=== PATIENT | female | born 1995 | race African-American/Black ===

== ENCOUNTER 2019-02-17 14:51 | Emergency (ER) | payer MEDICAID, OTHER ==
[~2019-02-17] VITALS: Ht 170.2 cm; Wt 68.0 kg
[~2019-02-17 14:51] MED LIST: NKM
--- NOTE | 2019-02-17 15:28 | Emergency Room Report ---
History of Present Illness General Chief Complaint: Wound Recheck/Suture Removal Source: Patient Present Illness HPI 23-year-old female with no significant past medical history here requesting I&D packing of left axilla. Patient went to an urgent care and had it drained 8 days ago. Never went back for wound check and change of the I&D packing. Has been taking Keflex and Bactrim. Still having pus coming out. Has not follow- up with primary care physician. Denies any fever and chills, shortness of breath, palpitation, no other associated symptoms. Up-to-date with immunization. Allergies: Coded Allergies: No Known Allergies (Unverified , 03/08/16) Patient History Past Medical History: see triage record Past Surgical History: unable to obtain Pertinent Family History: none Last Menstrual Period: 02/06/19 Now: No Immunizations: UTD Reviewed Nursing Documentation: PMH: Agreed; PSxH: Agreed Nursing Documentation-PMH Past Medical History: No Stated History Review of Systems All Other Systems: negative except mentioned in HPI Physical Exam Vital Signs Date Time Temp Pulse Resp B/P (MAP) Pulse Ox O2 Delivery O2 Flow Rate FiO2 02/17/19 14:56 98.1 79 18 115/60 (78) 98 Room Air Sp02 EP Interpretation: reviewed, normal General Appearance: no apparent distress, alert, GCS 15, non-toxic Head: normocephalic, atraumatic Eyes: bilateral eye normal inspection, bilateral eye PERRL ENT: hearing grossly normal, normal pharynx, no angioedema, normal voice Neck: full range of motion, supple/symm/no masses Respiratory: chest non-tender, lungs clear, normal breath sounds, no wheezing, speaking full sentences Cardiovascular #1: regular rate, rhythm, no edema, no murmur, normal capillary refill Gastrointestinal: normal bowel sounds, non tender, soft, non-distended, no guarding, no rebound Rectal: deferred Genitourinary: no CVA tenderness Musculoskeletal: back normal, gait/station normal, normal range of motion, non- tender, no calf tenderness Neurologic: alert, oriented x3, responsive, motor strength/tone normal, sensory intact, speech normal Psychiatric: judgement/insight normal, memory normal, mood/affect normal, no suicidal/homicidal ideation Skin: other - Draining abscess left axilla possible hidradenitis suppurativa Lymphatic: no adenopathy Procedures Incision and Drainage Incision and Drainage : Consent: Verbal Site: Left axilla I & D Procedure: betadine prep Wound Location: upper extremity Wound's Depth, Shape: superficial Wound Length (cm): 2 Wound Explored: contaminated Splint Applied?: No Patient Tolerated: Well Complications: None Progress Packing strip was applied proper bandage was applied Medical Decision Making PA Attestation Diagnosis and treatment plans were reviewed and discussed with my supervising physician Dr. Samayoa Diagnostic Impression: Primary Impression: Change or removal of wound dressing Additional Impression: Abscess of axilla, left ER Course 23-year-old female with no significant past medical history here requesting I&D packing of left axilla. Patient went to an urgent care and had it drained 8 days ago. Never went back for wound check and change of the I&D packing. Has been taking Keflex and Bactrim. Still having pus coming out. Has not follow- up with primary care physician. Denies any fever and chills, shortness of breath, palpitation, no other associated symptoms. Up-to-date with immunization. Ddx considered but are not limited to : Cellulitis,, superficial infection, abscess Vital signs: are WNL, pt. is afebrile H&PE are most consistent with: Draining abscess left axilla ORDERS: Keflex, Bactrim as needed to be extended due to continuous infection and patient not following up with primary care and proper management and wound check and dressing. ED INTERVENTIONS: I&D packing DISCHARGE: At this time pt. is stable for d/c to home. Will provide printed patient care instructions, and any necessary prescriptions. Care plan and follow up instructions have been discussed with the patient prior to discharge. I gave contact information of Dr. Haji and [facility] for follow-up wound check, patient to have wound check and dressing change in 2 to 3 days. Last Vital Signs Date Time Temp Pulse Resp B/P (MAP) Pulse Ox O2 Delivery O2 Flow Rate FiO2 02/17/19 14:56 98.1 79 18 115/60 (78) 98 Room Air Disposition: HOME, SELF-CARE Condition: Stable Scripts Trimethoprim/Sulfamethoxazole 160/800* (BACTRIM DS TABLET*) 1 Each Tablet 1 TAB ORAL TWICE A DAY for 7 Days, #28 TAB Prov: Bernie Mccullough 02/17/19 Cephalexin* (KEFLEX*) 500 Mg Capsule 500 MG ORAL EVERY 6 HOURS for 7 Days, #28 CAP Prov: Bernie Mccullough 02/17/19 Patient Instructions: Abscess, Wound Check Additional Instructions: Take medication as directed, follow-up for wound check in 2 to 3 days. You need to be seen by specialist. If worsening symptoms return to the emergency room. Bernie Mccullough Feb 17, 2019 15:28
[2019-02-17] MEDS ORDERED: BACTRIM DS TAB1 EAC1 ORAL (15:29)
[2019-02-17] MEDS ORDERED: CEPHALEXIN500 MG ORAL (15:29)
[2019-02-17 16:00] VITALS: BP 115/60
--- NOTE | 2019-02-17 16:00 | NUR ---
dressing changed discharged home with instruction and rx follow up with pmd
== END 2019-02-17 16:15 | disposition home or self-care (01) ==
LOC: EMR 15:21
DX: L02.412 Cutaneous abscess of left axilla (principal)
CPT/HCPCS: 10060; Z7502; 99283